=== PATIENT | male | born 1960 | race African-American/Black ===

== ENCOUNTER → 2016-08-11 | Outpatient (CLI) | payer SELFPAY ==
[2015-01-19 22:13] VITALS: BP 144/91
[~2016-08-11] MED LIST: OXYC30TA64 PO
[2016-08-11 13:56] LABS: BASO # 0.1 x10^3/uL (0.0-0.2); BASO % 1 % (0-3); EOS % 5 % (0-3); HEMATOCRIT 43.9 % (39.0-53.0); HEMOGLOBIN 14.3 g/dL (13.0-17.5); LYMPH # 2.3 x10^3/uL (1.0-4.8); LYMPH % 19 % (24-48); MEAN CORPUSCULAR HEMOGLOBIN 28 pg (25-35); MEAN CORPUSCULAR HGB CONC 33 g/dL (31-37); MEAN CORPUSCULAR VOLUME 85 fL (79-100); MONO % 5 % (0-9); NEUT % 71 % (31-73); PLATELET COUNT 342 x10^3/uL (140-400); RED BLOOD COUNT 5.17 x10^6/uL (4.30-5.70); WHITE BLOOD COUNT 11.8 x10^3/uL (4.0-11.0)
[2016-08-11 14:12] LABS: ALBUMIN 4.1 g/dL (3.4-5.0); ALBUMIN/GLOBULIN RATIO 1.1 (1.0-1.7); CALCIUM 9.5 mg/dL (8.5-10.1); CREATININE 0.9 mg/dL (0.7-1.3); GFR 106.4; POTASSIUM 3.8 mmol/L (3.5-5.1); TOTAL BILIRUBIN 0.3 mg/dL (0.2-1.0)
[2016-08-11 14:13] LABS: CHOLESTEROL/HDL RATIO 1.8
== END | disposition home or self-care (01) ==
LOC: LAB 12:22
PROVIDERS: ATTEND Surgery
DX: E11.9 Type 2 diabetes mellitus without complications (principal); E78.5 Hyperlipidemia, unspecified
CPT/HCPCS: 36415; 80053; 80061; 83036; 85027

== ENCOUNTER 2017-08-20 20:45 | Emergency (ER) | payer SELFPAY ==
[2017-08-20] MEDS: IPRATRPIUM/ALBUTEROL 0.5/2.5MG 3 ML NEBU. NEB (21:28)
[2017-08-20] MEDS: BENZONATATE 100 MG CAPSULE. PO (21:43)
== END 2017-08-20 22:10 | disposition home or self-care (01) ==
LOC: ER 22:10
DX: J20.9 Acute bronchitis, unspecified (principal); J06.9 Acute upper respiratory infection, unspecified; E11.9 Type 2 diabetes mellitus without complications; Z88.5 Allergy status to narcotic agent; Z88.8 Allergy status to other drugs, medicaments and biological substances
CPT/HCPCS: 71046; 94640; 99284; J7620

== ENCOUNTER 2018-07-01 06:45 | Emergency (ER) | payer MEDICAID ==
[~2018-07-01] VITALS: Ht 175.3 cm; Wt 73.5 kg
[~2018-07-01 06:45] MED LIST changes: +ALBU1.25 NEB; +AZIT250T PO; +BENZ100C PO; +CLIN150C14 PO; +VENTOLIN HFA18 GM INH
[2018-07-01] MEDS ORDERED: IV NORMAL SALINE 1000ML BAG 1,000 ML IV ONE (07:15)
[2018-07-01] MEDS ORDERED: fentaNYL PF VIAL 100 MCG/2 ML VIAL IV ONE (07:15)
[2018-07-01 07:32] LABS: BASO # 0.1 x10^3/uL (0.0-0.2); BASO % 1 % (0-3); EOS # 0.2 x10^3/uL (0.0-0.7); EOS % 3 % (0-3); HEMATOCRIT 37.1 % (39.0-53.0); HEMOGLOBIN 12.2 g/dL (13.0-17.5); LYMPH # 1.4 x10^3/uL (1.0-4.8); LYMPH % 22 % (24-48); MEAN CORPUSCULAR HEMOGLOBIN 27 pg (25-35); MEAN CORPUSCULAR HGB CONC 33 g/dL (31-37); MEAN CORPUSCULAR VOLUME 82 fL (79-100); MONO # 0.5 x10^3/uL (0.0-1.1); MONO % 8 % (0-9); NEUT # 4.4 x10^3uL (1.8-7.7); NEUT % 66 % (31-73); PLATELET COUNT 365 x10^3/uL (140-400); RED BLOOD COUNT 4.52 x10^6/uL (4.30-5.70); RED CELL DISTRIBUTION WIDTH 13.1 % (11.5-14.5); WHITE BLOOD COUNT 6.6 x10^3/uL (4.0-11.0)
[2018-07-01 07:40] LABS: CALCIUM 8.6 mg/dL (8.5-10.1); CREATININE 1.2 mg/dL (0.7-1.3); GFR 75.8; POTASSIUM 4.3 mmol/L (3.5-5.1)
[2018-07-01 07:45] LABS: ALBUMIN 3.2 g/dL (3.4-5.0); ALBUMIN/GLOBULIN RATIO 0.7 (1.0-1.7); TOTAL BILIRUBIN 0.4 mg/dL (0.2-1.0); TOTAL PROTEIN 7.7 g/dL (6.4-8.2)
--- NOTE | 2018-07-01 07:57 | RAD ---
CT of the abdomen and pelvis without contrast, 07/01/2018: HISTORY: Buttock abscess, cellulitis Noncontrast scans were obtained as requested. This limits evaluation of the abdominal structures. Comparison is made to a study from 01/15/2018. There are abnormal subcutaneous fluid collections in the buttock regions bilaterally. These consist of irregular fluid collections as well as streaky adjacent edema. The largest discrete fluid collection lies on the left and measures 8 cm in greatest width, 2.3 cm in AP dimension and approximately 5-6 cm in craniocaudad extent. It contains small gas collections forming air-fluid levels. The appearance is that of cellulitis with abscess formation. There are smaller less clearly marginated fluid collections containing gas in the subcutaneous soft tissues of the right buttock. This process abuts the posterior margins of the gluteal musculature bilaterally. No deep perirectal extension is evident. The unopacified liver is unremarkable. No gallbladder abnormality is seen. The pancreas cannot be clearly from unopacified bowel. There are calcified granulomata in the spleen. A 2 cm cyst is present in the lower pole of the right kidney. The unopacified kidneys are otherwise unremarkable. Mild aortic calcific plaquing is present. No abdominal adenopathy is seen. There are mildly enlarged lymph nodes at both groin levels. The largest of these lies on the left and measures 2.8 x 1.6 cm. There is diffuse bladder wall thickening, accentuated by the lack of bladder distention. The prostate gland is of normal size. There is a small amount of radiopaque material mixed with stool in the distal colon. The bowel loops are not dilated. No free fluid or free air is evident in the abdomen or pelvis. IMPRESSION: 1. Moderate inflammation and associated fluid collections containing gas in the subcutaneous buttock regions bilaterally, left greater than right, compatible with cellulitis and abscess formation. No definite deep extension is seen. 2. Mild bilateral inguinal adenopathy. 3. Diffuse bladder wall thickening suggesting cystitis versus chronic bladder outlet obstruction. PQRS Compliance Statement: One or more of the following individualized dose reduction techniques were utilized for this examination: 1. Automated exposure control 2. Adjustment of the mA and/or kV according to patient size 3. Use of iterative reconstruction technique Electronically signed by: Mando Taylor MD (07/01/2018 7:54 AM) [facility]
[2018-07-01] MEDS ORDERED: LIDOCAINE 1%/EPI 1:100,000 20 ML VIAL. INJ ONE (08:15)
[2018-07-01] MEDS ORDERED: CLINDAMYCIN INJ 300 MG in IV DEXTROSE 5% 50 ML IV ONE (08:30)
[2018-07-01 09:00] VITALS: BP 126/71
[2018-07-01] MEDS ORDERED: CEPH500C PO (09:05)
[2018-07-01] MEDS ORDERED: SULF1TAB24 PO (09:05)
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
== END 2018-07-01 10:17 | disposition home or self-care (01) ==
LOC: ER 06:45
DX: L02.31 Cutaneous abscess of buttock (principal); E11.40 Type 2 diabetes mellitus with diabetic neuropathy, unspecified; G89.29 Other chronic pain; Z90.89 Acquired absence of other organs; Z91.041 Radiographic dye allergy status; Z88.5 Allergy status to narcotic agent; Z88.6 Allergy status to analgesic agent
CPT/HCPCS: 10061; 36415; 74176; 80053; 83605; 85025; 87040; 96365; 96375; 99285; J3010; J3490; J7030

== ENCOUNTER 2018-08-17 03:25 | Inpatient (IN) | payer MEDICAID ==
[2018-08-17] VITALS (13 sets, daily range): BP systolic 102–141; BP diastolic 57–91
[~2018-08-17] VITALS: Ht 175.3 cm; Wt 65.3 kg
[~2018-08-17 03:25] MED LIST changes: +CEPH500C PO; +SULF1TAB24 PO
[2018-08-17] MEDS ORDERED: DEXTROSE 50% 25 GM / 50ML DISP.SYRIN. IV PRN ×2 (04:00→08:45)
[2018-08-17] MEDS ORDERED: fentaNYL PF VIAL 100 MCG/2 ML VIAL IV PRN ×3 (04:00→09:00)
[2018-08-17] MEDS ORDERED: ONDANSETRON PF 4 MG/2 ML VIAL. IV PRN ×3 (04:00→11:45)
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
[2018-08-17 04:20] LABS: BASO # 0.1 x10^3/uL (0.0-0.2); BASO % 1 % (0-3); EOS # 0.4 x10^3/uL (0.0-0.7); EOS % 6 % (0-3); LYMPH # 2.4 x10^3/uL (1.0-4.8); LYMPH % 37 % (24-48); MEAN CORPUSCULAR HEMOGLOBIN 27 pg (25-35); MEAN CORPUSCULAR HGB CONC 33 g/dL (31-37); MEAN CORPUSCULAR VOLUME 80 fL (79-100); MONO # 0.5 x10^3/uL (0.0-1.1); MONO % 8 % (0-9); NEUT # 3.1 x10^3uL (1.8-7.7); NEUT % 48 % (31-73); PLATELET COUNT 424 x10^3/uL (140-400); RED BLOOD COUNT 4.52 x10^6/uL (4.30-5.70); RED CELL DISTRIBUTION WIDTH 13.3 % (11.5-14.5); WHITE BLOOD COUNT 6.5 x10^3/uL (4.0-11.0)
[2018-08-17] MEDS ORDERED: CLINDAMYCIN 600MG PREMIX 50 ML IV ONE (04:30)
[2018-08-17] MEDS ORDERED: IV NORMAL SALINE 1000ML BAG 1,000 ML IV ONE (04:30)
[2018-08-17 04:42] LABS: CALCIUM 8.8 mg/dL (8.5-10.1); CREATININE 1.1 mg/dL (0.7-1.3); GFR 83.8; POTASSIUM 3.9 mmol/L (3.5-5.1)
[2018-08-17 04:47] LABS: ALBUMIN 2.9 g/dL (3.4-5.0); ALBUMIN/GLOBULIN RATIO 0.6 (1.0-1.7); MAGNESIUM 1.6 mg/dL (1.8-2.4); TOTAL BILIRUBIN 0.1 mg/dL (0.2-1.0); TOTAL PROTEIN 7.4 g/dL (6.4-8.2)
[2018-08-17] MEDS ORDERED: MORPHINE SULFATE 10 MG/ML VIAL. IV ONE (05:00)
--- NOTE | 2018-08-17 05:15 | NUR ---
Patient admitted from ER to room 432 per cart. Patient has bilateral abscesses on his buttocks. Patient states he injects insulin into his buttocks with dirty insulin needles. Explained to patient and his that he should not be doing that. Instructed patient to use a new needle with every injection. Patient has several allergies listed above. Patient is alert and oriented X4. Patient lives at home with his Karely. Consult with Dr. Garcia for I&D of abscesses. Will continue to monitor.
[2018-08-17] MEDS: fentaNYL PF VIAL 100 MCG/2 ML VIAL IV PRN ×3 (07:15→13:04)
[2018-08-17] MEDS ORDERED: OXYC30TA2 PO (07:33)
[2018-08-17] MEDS ORDERED: INSULIN LISPRO 300 UNITS/3 ML INSULN.PEN. SQ SCH (08:00)
--- NOTE | 2018-08-17 08:14 | PDOC2 ---
KONRAD BALLESTEROS CUSTOMER SERVICE CLERK 08/17/18 0814: CONSULT Date of Consult Date of Consult DATE: 08/17/18 TIME: 08:05 Reason for Consult Reason for Consult: buttock abscess Referring Physician Referring Physician: er Identification/Chief Complaint Chief Complaint buttock pain Source Source: Caregiver, Chart review History of Present Illness Reason for Visit: Reports had previously been using dull insulin needs to give him his shots, was doing them to gluteal muscle. Developed abscess back in December and has been having ongoing issues with infections. Local I&D x 2. Yesterday had some burst of drainage. Continues to swell and have pain. His blood sugars have been high and reports fevers Past Medical History Pulmonary: Bronchitis, Other (TB hx) CENTRAL NERVOUS SYSTEM: Periperal neuropathy Musculoskeletal: low back pain Endocrine: Diabetes Past Surgical History Past Surgical History: Other (xlap, did not remove appendix) Family History Family History: Other (noncontributory to current illness ) Social History No ALCOHOL: none Drugs: None Lives: with Family Current Problem List Problem List Problems Medical Problems: (1) Hyperglycemia Status: Acute Current Medications Current Medications Current Medications Clindamycin Phosphate 50 ml @ 100 mls/hr 1X ONCE IV Last administered on 08/17/18at 04:12; Start 08/17/18 at 04:30; Stop 08/17/18 at 04:59; Status DC Sodium Chloride 1,000 ml @ 1,000 mls/hr 1X ONCE IV Last administered on 08/17/18at 04:13; Start 08/17/18 at 04:30; Stop 08/17/18 at 05:29; Status DC Ondansetron HCl (Zofran) 4 mg PRN Q8HRS PRN IV NAUSEA/VOMITING 1ST CHANCE; Start 08/17/18 at 04:00; Stop 08/18/18 at 03:59 Fentanyl Citrate (Fentanyl 2ml Vial) 50 mcg Q2HR PRN IV PAIN Last administered on 08/17/18at 04:14; Start 08/17/18 at 04:00; Stop 08/17/18 at 04:18; Status DC Insulin Human Lispro (HumaLOG) 0-5 UNITS TIDWMEALS SQ ; Start 08/17/18 at 08:00 Dextrose (Dextrose 50%-Water Syringe) 12.5 gm PRN Q15MIN PRN IV SEE COMMENTS; Start 08/17/18 at 04:00 Fentanyl Citrate (Fentanyl 2ml Vial) 50 mcg PRN Q2HRS PRN IV SEVERE PAIN 7-10 Last administered on 08/17/18at 07:15; Start 08/17/18 at 04:30; Stop 08/18/18 at 04:29 Morphine Sulfate (Morphine Sulfate) 6 mg 1X ONCE IV Last administered on 08/17/18at 04:57; Start 08/17/18 at 05:00; Stop 08/17/18 at 05:01; Status DC Active Scripts Active Cephalexin 500 Mg Capsule 1 Cap PO QID Albuterol Sulfate Neb Soln (Albuterol Sulfate) 1.25 Mg/3 Ml Vial.neb 1 Vial NEB Q4HRS Ventolin Hfa Inhaler (Albuterol Sulfate) 18 Gm Hfa.aer.ad 2 Puff INH Q4HRS Zithromax (Azithromycin) 250 Mg Tablet 1 Pkg PO UD Reported Oxycodone HCl 30 Mg Tablet 30 Mg PO PRN Q6HRS PRN Oxycontin (Oxycodone HCl) 30 Mg Tab.er.12h 1 Tab PO BID Allergies Allergies: Coded Allergies: Iodinated Contrast- Oral and IV Dye (Verified Allergy, Severe, Anaphylaxis, 01/15/18) iodine (Verified Allergy, Severe, 01/15/18) acetaminophen (Verified Allergy, Intermediate, Hives, 08/17/18) codeine (Verified Allergy, Intermediate, Hives, 08/17/18) hydrocodone (Unverified Allergy, Intermediate, Rash, 01/15/18) sodium hypochlorite solution (Verified Allergy, Intermediate, 05/28/14) tramadol (Verified Allergy, Intermediate, 01/15/18) ROS General: YES: Chills, Other (fevers ) PSYCHOLOGICAL ROS: No: Anxiety, Depression Eyes: No Blurry vision, No Double vision HEENT: No: Heacaches, Sore Throat Hematological and Lymphatic: No: Bleeding Problems, Blood Clots Respiratory: No: Cough, Shortness of breath Cardiovascular: No Chest Pain, No Palpitations Gastrointestinal: Yes Nausea, Yes Vomiting; No Diarrhea, No Constipation Genitourinary: No Dysuria, No Hematuria Musculoskeletal: Yes Joint Pain, Yes Muscle Pain Neurological: No Confusion, No Impaired Coord/balance Skin: Yes Other (see hpi) Physical Exam General: Alert, Oriented X3, Cooperative, No acute distress HEENT: PERRLA, Mucous membr. moist/pink Lungs: Clear to auscultation, Normal air movement Heart: Regular rate, Normal S1, Normal S2, No murmurs Abdomen: Soft, No tenderness Extremities: No clubbing, No cyanosis Skin: Other (left buttock with very large palpable fluid collection, right buttock small area of induration/flutuance ) Neuro: Normal gait, Normal speech MUSCULOSKELETAL: No deformity, No swelling Vitals VITALS Vital Signs Date Time Temp Pulse Resp B/P (MAP) Pulse Ox O2 Delivery O2 Flow Rate FiO2 08/17/18 07:15 20 Room Air 08/17/18 07:00 98.2 73 102/65 (77) 95 98.2 Labs Labs Laboratory Tests Test 08/17/18 04:05 08/17/18 06:08 White Blood Count 6.5 x10^3/uL (4.0-11.0) Red Blood Count 4.52 x10^6/uL (4.30-5.70) Hemoglobin 12.0 g/dL (13.0-17.5) Hematocrit 36.0 % (39.0-53.0) Mean Corpuscular Volume 80 fL (79-100) Mean Corpuscular Hemoglobin 27 pg (25-35) Mean Corpuscular Hemoglobin Concent 33 g/dL (31-37) Red Cell Distribution Width 13.3 % (11.5-14.5) Platelet Count 424 x10^3/uL (140-400) Neutrophils (%) (Auto) 48 % (31-73) Lymphocytes (%) (Auto) 37 % (24-48) Monocytes (%) (Auto) 8 % (0-9) Eosinophils (%) (Auto) 6 % (0-3) Basophils (%) (Auto) 1 % (0-3) Neutrophils # (Auto) 3.1 x10^3uL (1.8-7.7) Lymphocytes # (Auto) 2.4 x10^3/uL (1.0-4.8) Monocytes # (Auto) 0.5 x10^3/uL (0.0-1.1) Eosinophils # (Auto) 0.4 x10^3/uL (0.0-0.7) Basophils # (Auto) 0.1 x10^3/uL (0.0-0.2) Sodium Level 132 mmol/L (136-145) Potassium Level 3.9 mmol/L (3.5-5.1) Chloride Level 96 mmol/L (98-107) Carbon Dioxide Level 31 mmol/L (21-32) Anion Gap 5 (6-14) Blood Urea Nitrogen 5 mg/dL (8-26) Creatinine 1.1 mg/dL (0.7-1.3) Estimated GFR (Cockcroft-Gault) 83.8 BUN/Creatinine Ratio 5 (6-20) Glucose Level 356 mg/dL (70-99) Lactic Acid Level 1.8 mmol/L (0.4-2.0) Calcium Level 8.8 mg/dL (8.5-10.1) Magnesium Level 1.6 mg/dL (1.8-2.4) Total Bilirubin 0.1 mg/dL (0.2-1.0) Aspartate Amino Transf (AST/SGOT) 11 U/L (15-37) Alanine Aminotransferase (ALT/SGPT) 13 U/L (16-63) Alkaline Phosphatase 75 U/L (46-116) Total Protein 7.4 g/dL (6.4-8.2) Albumin 2.9 g/dL (3.4-5.0) Albumin/Globulin Ratio 0.6 (1.0-1.7) Glucose (Fingerstick) 201 mg/dL (70-99) Laboratory Tests Test 08/17/18 04:05 08/17/18 06:08 White Blood Count 6.5 x10^3/uL (4.0-11.0) Red Blood Count 4.52 x10^6/uL (4.30-5.70) Hemoglobin 12.0 g/dL (13.0-17.5) Hematocrit 36.0 % (39.0-53.0) Mean Corpuscular Volume 80 fL (79-100) Mean Corpuscular Hemoglobin 27 pg (25-35) Mean Corpuscular Hemoglobin Concent 33 g/dL (31-37) Red Cell Distribution Width 13.3 % (11.5-14.5) Platelet Count 424 x10^3/uL (140-400) Neutrophils (%) (Auto) 48 % (31-73) Lymphocytes (%) (Auto) 37 % (24-48) Monocytes (%) (Auto) 8 % (0-9) Eosinophils (%) (Auto) 6 % (0-3) Basophils (%) (Auto) 1 % (0-3) Neutrophils # (Auto) 3.1 x10^3uL (1.8-7.7) Lymphocytes # (Auto) 2.4 x10^3/uL (1.0-4.8) Monocytes # (Auto) 0.5 x10^3/uL (0.0-1.1) Eosinophils # (Auto) 0.4 x10^3/uL (0.0-0.7) Basophils # (Auto) 0.1 x10^3/uL (0.0-0.2) Sodium Level 132 mmol/L (136-145) Potassium Level 3.9 mmol/L (3.5-5.1) Chloride Level 96 mmol/L (98-107) Carbon Dioxide Level 31 mmol/L (21-32) Anion Gap 5 (6-14) Blood Urea Nitrogen 5 mg/dL (8-26) Creatinine 1.1 mg/dL (0.7-1.3) Estimated GFR (Cockcroft-Gault) 83.8 BUN/Creatinine Ratio 5 (6-20) Glucose Level 356 mg/dL (70-99) Lactic Acid Level 1.8 mmol/L (0.4-2.0) Calcium Level 8.8 mg/dL (8.5-10.1) Magnesium Level 1.6 mg/dL (1.8-2.4) Total Bilirubin 0.1 mg/dL (0.2-1.0) Aspartate Amino Transf (AST/SGOT) 11 U/L (15-37) Alanine Aminotransferase (ALT/SGPT) 13 U/L (16-63) Alkaline Phosphatase 75 U/L (46-116) Total Protein 7.4 g/dL (6.4-8.2) Albumin 2.9 g/dL (3.4-5.0) Albumin/Globulin Ratio 0.6 (1.0-1.7) Glucose (Fingerstick) 201 mg/dL (70-99) Assessment/Plan Assessment/Plan buttock abscess will likely need I&D--will discuss with Dr Garcia keep NPO continue abx treatment GREGORIO GARCIA MD 08/17/18 1015: CONSULT Assessment/Plan Assessment/Plan Pt seen and examined. Agree with Ms. Allie's note Pt with c/o Bilateral buttock pain, multiple previous I and Ds. multiple TTP areas on bilateral buttocks with small fluctuant areas. TO OR for multiple I and Ds. R/B/A d/w pt. Risks, including, but not limited to: bleeding, infection, damage to surrounding structures, risk of anesthesia, risk or recurrence. He appears to understand, his questions are answered and he elects to proceed. Thanks for consult! KONRAD BALLESTEROS APRN Aug 17, 2018 08:14 GREGORIO GARCIA MD Aug 17, 2018 10:15
[2018-08-17] MEDS ORDERED: traMADol 50 MG TABLET PO PRN (08:45)
[2018-08-17] MEDS ORDERED: IV RINGERS,LACTATED 1000ML 1,000 ML IV SCH (08:48)
[2018-08-17] MEDS ORDERED: PROCHLORPERAZINE 10 MG/2 ML VIAL. IV PRN (09:00)
[2018-08-17] MEDS ORDERED: LIDOCAINE 1% PF 2 ML VIAL. ID PRN (09:00)
[2018-08-17] MEDS ORDERED: BUPIVAC MPF-EPI 0.5%-1:200000 30 ML VIAL. ONE (09:46)
[2018-08-17] MEDS ORDERED: MIDAZOLAM HCL/PF 2 MG/2 ML VIAL. ONE (10:17)
[2018-08-17] MEDS ORDERED: SEVOFLURANE 31 TO 60 MINUTES. IH ONE (10:17)
[2018-08-17] MEDS ORDERED: DEXAMETHASONE SOD PHOS 4 MG/ML VIAL ONE (10:18)
[2018-08-17] MEDS ORDERED: PROPOFOL 20 ML IV ONE (10:18)
[2018-08-17] MEDS ORDERED: LIDOCAINE 2% PF 5 ML VIAL. ONE (10:18)
[2018-08-17] MEDS ORDERED: SUCCINYLCHOLINE 200 MG/10 ML VIAL. ONE (10:18)
[2018-08-17] MEDS ORDERED: fentaNYL PF VIAL 100 MCG/2 ML VIAL ONE (10:18)
[2018-08-17] MEDS ORDERED: ONDANSETRON PF 4 MG/2 ML VIAL. ONE (10:18)
[2018-08-17] MEDS ORDERED: ceFAZolin 1GM IVPB FOR OMNI 100 ML IV ONE (10:26)
--- NOTE | 2018-08-17 10:53 | PDOC1 ---
History and Physical Date of Admission Date of Admission DATE: 08/17/18 TIME: 10:47 Identification/Chief Complaint Chief Complaint Pt is out having surgery of his abscess on bilateral buttocks by GS Source Source: Caregiver, Chart review, Patient History of Present Illness History of Present Illness Pt is out having surgery hence most of the history obtained via ER M.D. chart 57-year-old male diabetic presented with bilateral buttock abscesses. Admitted to running out of insulin few mos now, symptoms started when he started injecting insulin in his buttock needed some I and D in the past In June 2018 came to the ED additional I&D done/needed, returned home on antibiotics and subsequently developed hives tape gauze etc. Used [id number] Benadryl. A week ago persistent pain and yesterday right buttock abscess draining pink to yellow pus significant pain, cannot sit down. Denies fever or chills. Tetanus booster was less than 5 years ago hence admitted. On clindamycin, diabetic, out having surgery We'll check A1c Follow cultures hgba1c 8.7 in 2016 Past Medical History Pulmonary: Bronchitis, Other (TB hx) CENTRAL NERVOUS SYSTEM: Periperal neuropathy Musculoskeletal: low back pain Endocrine: Diabetes Past Surgical History Past Surgical History: Other (xlap, did not remove appendix; I and D buttock) Family History Family History: High Cholestrol, Hypertension, Other (noncontributory to current illness ) Social History Smoke: No ALCOHOL: none Drugs: None Current Problem List Problem List Problems Medical Problems: (1) Hyperglycemia Status: Acute Current Medications Current Medications Current Medications Clindamycin Phosphate 50 ml @ 100 mls/hr 1X ONCE IV Last administered on 08/17/18at 04:12; Start 08/17/18 at 04:30; Stop 08/17/18 at 04:59; Status DC Sodium Chloride 1,000 ml @ 1,000 mls/hr 1X ONCE IV Last administered on 08/17/18at 04:13; Start 08/17/18 at 04:30; Stop 08/17/18 at 05:29; Status DC Ondansetron HCl (Zofran) 4 mg PRN Q8HRS PRN IV NAUSEA/VOMITING 1ST CHANCE; Start 08/17/18 at 04:00; Stop 08/17/18 at 08:43; Status DC Fentanyl Citrate (Fentanyl 2ml Vial) 50 mcg Q2HR PRN IV PAIN Last administered on 08/17/18at 04:14; Start 08/17/18 at 04:00; Stop 08/17/18 at 04:18; Status DC Insulin Human Lispro (HumaLOG) 0-5 UNITS TIDWMEALS SQ ; Start 08/17/18 at 08:00; Stop 08/17/18 at 08:43; Status DC Dextrose (Dextrose 50%-Water Syringe) 12.5 gm PRN Q15MIN PRN IV SEE COMMENTS; Start 08/17/18 at 04:00 Fentanyl Citrate (Fentanyl 2ml Vial) 50 mcg PRN Q2HRS PRN IV SEVERE PAIN 7-10 Last administered on 08/17/18at 10:19; Start 08/17/18 at 04:30; Stop 08/18/18 at 04:29 Morphine Sulfate (Morphine Sulfate) 6 mg 1X ONCE IV Last administered on 08/17/18at 04:57; Start 08/17/18 at 05:00; Stop 08/17/18 at 05:01; Status DC Ondansetron HCl (Zofran) 4 mg PRN Q6HRS PRN IV NAUSEA/VOMITING 1ST CHANCE; Start 08/17/18 at 08:45 Tramadol HCl (Ultram) 50 mg PRN Q6HRS PRN PO MILD PAIN 1-3; Start 08/17/18 at 08:45; Status UNV Insulin Human Lispro (HumaLOG) 0-9 UNITS TIDWMEALS SQ ; Start 08/17/18 at 12:00 Dextrose (Dextrose 50%-Water Syringe) 12.5 gm PRN Q15MIN PRN IV SEE COMMENTS; Start 08/17/18 at 08:45 Oxycodone HCl (Roxicodone) 30 mg PRN Q6HRS PRN PO SEVERE PAIN; Start 08/17/18 at 08:45 Non-Formulary Medication (Albuterol Sulfate (Albuterol Sulfate Neb Soln)) 1 vial Q4HRS NEB ; Start 08/17/18 at 12:00; Status UNV Non-Formulary Medication (Albuterol Sulfate (Ventolin Hfa Inhaler)) 2 puff Q4HRS INH ; Start 08/17/18 at 12:00; Status UNV Clindamycin Phosphate 50 ml @ 100 mls/hr Q8HRS IV ; Start 08/17/18 at 13:00 Fentanyl Citrate (Fentanyl 2ml Vial) 25 mcg PRN Q5MIN PRN IV MILD PAIN 1-3; Start 08/17/18 at 09:00; Stop 08/17/18 at 18:00 Fentanyl Citrate (Fentanyl 2ml Vial) 50 mcg PRN Q5MIN PRN IV MODERATE TO SEVERE PAIN; Start 08/17/18 at 09:00; Stop 08/17/18 at 20:00 Ringer's Solution 1,000 ml @ 30 mls/hr Q24H IV Last administered on 08/17/18at 09:33; Start 08/17/18 at 08:48; Stop 08/17/18 at 20:47 Lidocaine HCl (Xylocaine-Mpf 1% 2ml Vial) 2 ml PRN 1X PRN ID PRIOR TO IV START; Start 08/17/18 at 09:00; Stop 08/17/18 at 20:00 Prochlorperazine Edisylate (Compazine) 5 mg PACU PRN PRN IV NAUSEA, MRX1; Start 08/17/18 at 09:00; Stop 08/17/18 at 20:00 Albuterol Sulfate (Ventolin Neb Soln) 2.5 mg Q4HRS NEB ; Start 08/17/18 at 12:00 Sevoflurane (Ultane) 30 ml STK-MED ONCE IH ; Start 08/17/18 at 10:17; Stop 08/17/18 at 10:18; Status DC Midazolam HCl (Versed) 2 mg STK-MED ONCE .ROUTE ; Start 08/17/18 at 10:17; Stop 08/17/18 at 10:18; Status DC Fentanyl Citrate (Fentanyl 2ml Vial) 100 mcg STK-MED ONCE .ROUTE ; Start 08/17/18 at 10:18; Stop 08/17/18 at 10:19; Status DC Succinylcholine Chloride (Anectine) 200 mg STK-MED ONCE .ROUTE ; Start 08/17/18 at 10:18; Stop 08/17/18 at 10:19; Status DC Dexamethasone Sodium Phosphate (Decadron) 4 mg STK-MED ONCE .ROUTE ; Start 08/17/18 at 10:18; Stop 08/17/18 at 10:19; Status DC Ondansetron HCl (Zofran) 4 mg STK-MED ONCE .ROUTE ; Start 08/17/18 at 10:18; Stop 08/17/18 at 10:19; Status DC Propofol 20 ml @ As Directed STK-MED ONCE IV ; Start 08/17/18 at 10:18; Stop 08/17/18 at 10:19; Status DC Lidocaine HCl (Lidocaine Pf 2% Vial) 5 ml STK-MED ONCE .ROUTE ; Start 08/17/18 at 10:18; Stop 08/17/18 at 10:19; Status DC Cefazolin Sodium 100 ml @ As Directed STK-MED ONCE IV ; Start 08/17/18 at 10:26; Stop 08/17/18 at 10:27; Status DC Bupivacaine HCl/ Epinephrine Bitart (Sensorcain-Mpf Epi 0.5%-1:[id number]) 30 ml STK-MED ONCE .ROUTE ; Start 08/17/18 at 09:46; Stop 08/17/18 at 10:46; Status DC Active Scripts Active Cephalexin 500 Mg Capsule 1 Cap PO QID Albuterol Sulfate Neb Soln (Albuterol Sulfate) 1.25 Mg/3 Ml Vial.neb 1 Vial NEB Q4HRS Ventolin Hfa Inhaler (Albuterol Sulfate) 18 Gm Hfa.aer.ad 2 Puff INH Q4HRS Zithromax (Azithromycin) 250 Mg Tablet 1 Pkg PO UD Reported Oxycodone HCl 30 Mg Tablet 30 Mg PO PRN Q6HRS PRN Oxycontin (Oxycodone HCl) 30 Mg Tab.er.12h 1 Tab PO BID Allergies Allergies: Coded Allergies: Iodinated Contrast- Oral and IV Dye (Verified Allergy, Severe, Anaphylaxis, 01/15/18) iodine (Verified Allergy, Severe, 01/15/18) acetaminophen (Verified Allergy, Intermediate, Hives, 08/17/18) codeine (Verified Allergy, Intermediate, Hives, 08/17/18) hydrocodone (Unverified Allergy, Intermediate, Rash, 01/15/18) sodium hypochlorite solution (Verified Allergy, Intermediate, 05/28/14) tramadol (Verified Allergy, Intermediate, 01/15/18) ROS Review of System Bilateral buttock pain because of abscess, cannot sit, the rest of ROS 14 point negative Physical Exam General: Alert, Oriented X3, Cooperative, No acute distress HEENT: Atraumatic, PERRLA, EOMI Lungs: Clear to auscultation, Normal air movement Heart: S1S2, RRR, no thrills, no rubs, no gallops, no murmurs Cardiovascular: S1, S2 Abdomen: Normal bowel sounds, Soft, No tenderness, No hepatosplenomegaly, No masses Rectal Exam: other (bilateral buttock abscess, draining) Extremities: No clubbing, No cyanosis, No edema, Normal pulses, No tenderness/swelling Skin: No rashes, No breakdown, No significant lesion Neuro: Normal gait, Normal speech, Strength at 5/5 X4 ext, Normal tone, Sensation intact, Cranial nerves 3-12 NL, Reflexes 2+ Psych/Mental Status: Mental status NL, Mood NL Vitals Vitals Vital Signs Date Time Temp Pulse Resp B/P (MAP) Pulse Ox O2 Delivery O2 Flow Rate FiO2 08/17/18 10:19 12 96 Room Air 08/17/18 09:47 97.2 78 116/70 97.2 Labs Labs Laboratory Tests Test 08/17/18 04:05 08/17/18 06:08 White Blood Count 6.5 x10^3/uL (4.0-11.0) Red Blood Count 4.52 x10^6/uL (4.30-5.70) Hemoglobin 12.0 g/dL (13.0-17.5) Hematocrit 36.0 % (39.0-53.0) Mean Corpuscular Volume 80 fL (79-100) Mean Corpuscular Hemoglobin 27 pg (25-35) Mean Corpuscular Hemoglobin Concent 33 g/dL (31-37) Red Cell Distribution Width 13.3 % (11.5-14.5) Platelet Count 424 x10^3/uL (140-400) Neutrophils (%) (Auto) 48 % (31-73) Lymphocytes (%) (Auto) 37 % (24-48) Monocytes (%) (Auto) 8 % (0-9) Eosinophils (%) (Auto) 6 % (0-3) Basophils (%) (Auto) 1 % (0-3) Neutrophils # (Auto) 3.1 x10^3uL (1.8-7.7) Lymphocytes # (Auto) 2.4 x10^3/uL (1.0-4.8) Monocytes # (Auto) 0.5 x10^3/uL (0.0-1.1) Eosinophils # (Auto) 0.4 x10^3/uL (0.0-0.7) Basophils # (Auto) 0.1 x10^3/uL (0.0-0.2) Sodium Level 132 mmol/L (136-145) Potassium Level 3.9 mmol/L (3.5-5.1) Chloride Level 96 mmol/L (98-107) Carbon Dioxide Level 31 mmol/L (21-32) Anion Gap 5 (6-14) Blood Urea Nitrogen 5 mg/dL (8-26) Creatinine 1.1 mg/dL (0.7-1.3) Estimated GFR (Cockcroft-Gault) 83.8 BUN/Creatinine Ratio 5 (6-20) Glucose Level 356 mg/dL (70-99) Lactic Acid Level 1.8 mmol/L (0.4-2.0) Calcium Level 8.8 mg/dL (8.5-10.1) Magnesium Level 1.6 mg/dL (1.8-2.4) Total Bilirubin 0.1 mg/dL (0.2-1.0) Aspartate Amino Transf (AST/SGOT) 11 U/L (15-37) Alanine Aminotransferase (ALT/SGPT) 13 U/L (16-63) Alkaline Phosphatase 75 U/L (46-116) Total Protein 7.4 g/dL (6.4-8.2) Albumin 2.9 g/dL (3.4-5.0) Albumin/Globulin Ratio 0.6 (1.0-1.7) Glucose (Fingerstick) 201 mg/dL (70-99) Laboratory Tests Test 08/17/18 04:05 08/17/18 06:08 White Blood Count 6.5 x10^3/uL (4.0-11.0) Red Blood Count 4.52 x10^6/uL (4.30-5.70) Hemoglobin 12.0 g/dL (13.0-17.5) Hematocrit 36.0 % (39.0-53.0) Mean Corpuscular Volume 80 fL (79-100) Mean Corpuscular Hemoglobin 27 pg (25-35) Mean Corpuscular Hemoglobin Concent 33 g/dL (31-37) Red Cell Distribution Width 13.3 % (11.5-14.5) Platelet Count 424 x10^3/uL (140-400) Neutrophils (%) (Auto) 48 % (31-73) Lymphocytes (%) (Auto) 37 % (24-48) Monocytes (%) (Auto) 8 % (0-9) Eosinophils (%) (Auto) 6 % (0-3) Basophils (%) (Auto) 1 % (0-3) Neutrophils # (Auto) 3.1 x10^3uL (1.8-7.7) Lymphocytes # (Auto) 2.4 x10^3/uL (1.0-4.8) Monocytes # (Auto) 0.5 x10^3/uL (0.0-1.1) Eosinophils # (Auto) 0.4 x10^3/uL (0.0-0.7) Basophils # (Auto) 0.1 x10^3/uL (0.0-0.2) Sodium Level 132 mmol/L (136-145) Potassium Level 3.9 mmol/L (3.5-5.1) Chloride Level 96 mmol/L (98-107) Carbon Dioxide Level 31 mmol/L (21-32) Anion Gap 5 (6-14) Blood Urea Nitrogen 5 mg/dL (8-26) Creatinine 1.1 mg/dL (0.7-1.3) Estimated GFR (Cockcroft-Gault) 83.8 BUN/Creatinine Ratio 5 (6-20) Glucose Level 356 mg/dL (70-99) Lactic Acid Level 1.8 mmol/L (0.4-2.0) Calcium Level 8.8 mg/dL (8.5-10.1) Magnesium Level 1.6 mg/dL (1.8-2.4) Total Bilirubin 0.1 mg/dL (0.2-1.0) Aspartate Amino Transf (AST/SGOT) 11 U/L (15-37) Alanine Aminotransferase (ALT/SGPT) 13 U/L (16-63) Alkaline Phosphatase 75 U/L (46-116) Total Protein 7.4 g/dL (6.4-8.2) Albumin 2.9 g/dL (3.4-5.0) Albumin/Globulin Ratio 0.6 (1.0-1.7) Glucose (Fingerstick) 201 mg/dL (70-99) VTE Prophylaxis Ordered VTE Prophylaxis Devices: Yes VTE Pharmacological Prophylaxi: Yes Assessment/Plan Assessment/Plan Bilateral buttock abscess Sepsis no organ dysfunction Diabetes type 2, question compliance-check A1c - hgba1c 8.7 in 2017 Hyponatremia 132 History I and D buttocks PLAN: FF up from OR Check postop labs Check a sedimentation rate Continue clindamycin Follow cultures Start some Levemir long-acting Cannot do metformin? Creatinine 1.1 or alcoholic? Maybe some glyburide mealtime SSI high dose Check hgba1c GS consulted WOund care to consult maybe pending my PE Will see hime When he gets back from OR NIC HERNANDEZ MD Aug 17, 2018 10:53
[2018-08-17] MEDS ORDERED: IV NORMAL SALINE 1000ML BAG 1,000 ML IV SCH (11:42)
[2018-08-17] MEDS ORDERED: NALOXONE 0.4 MG/ML VIAL. IV PRN (11:45)
[2018-08-17] MEDS ORDERED: 0.9 % SODIUM CHLORIDE 10 ML DISP.SYRIN. IV PRN (11:45)
--- NOTE | 2018-08-17 11:51 | PDOC4 ---
OPERATIVE NOTE Date: Date: Aug 17, 2018 Pre-Op Diagnosis: Bilateral buttock abscesses Post-Op Diagnosis: same Procedure Performed: Incisional and drainage of bilateral buttock abscesses Surgeon: Elijah Bello Anesthesia Type: GETA plus local Blood Loss: 50 Specimans Obtained: cultures, left buttock abscess Findings: bilateral, large buttock abscesses Complications: none Operative Note: After obtaining informed consent, patient was taken to OR, induced under GETA and prepped in the usual fashion and placed in a prone position. Left buttock noted to have necrotic skin area which was excised with cautery and sent to pathology. Large amount of brownish/bennett fluid evacuated. Cultures obtained. Copious irrigation and digital evacuation of large cavity. Multiple counter incisions made and miles drains placed and secured with 3 0 nylon. Wound packed with iodoform gauze. Dressing placed. Right buttock then addressed. Incision and drainage made with cautery and equally large abscess identified, evacuated, digitally broken up and irrigated. Multiple counter incisions made and miles drains placed to widely drain area. Wound packed with iodoform gauze. Dressing placed. Patient tolerated procedure well and sent to PACU in stable condition. All counts correct. Wound class is dirty. GREGORIO BELLO MD Aug 17, 2018 11:51
[2018-08-17] MEDS: INSULIN LISPRO 300 UNITS/3 ML INSULN.PEN. SQ SCH ×4 (11:54→21:00)
[2018-08-17] MEDS ORDERED: ceFAZolin SODIUM IV Push 1 GM VIAL. IVP PRN (12:00)
[2018-08-17] MEDS ORDERED: NON FORMULARY ITEM (Albuterol Sulfate (Ventolin Hfa Inhaler) 2 PUFF) INH SCH (12:00)
[2018-08-17] MEDS ORDERED: NON FORMULARY ITEM (Albuterol Sulfate (Albuterol Sulfate Neb Soln) 1 VIAL) NEB SCH (12:00)
--- NOTE | 2018-08-17 12:28 | NUR ---
Pt returned to floor from PACU by bed to room 432. ordered meal tray. Dressings to bilateral buttocks CDI. VS WNL.
[2018-08-17] MEDS: CLINDAMYCIN 600MG PREMIX 50 ML IV SCH ×2 (13:09→22:49)
[2018-08-17] MEDS: SENNOSIDES/DOCUSATE 8.6/50MG TABLET. PO SCH ×2 (13:11→21:03)
[2018-08-17] MEDS: ALBUTEROL SULFATE 2.5 MG/3 ML NEBU. NEB SCH ×4 (13:13→19:33)
[2018-08-17] MEDS ORDERED: GLYB5TAB3 PO (15:23)
[2018-08-17] MEDS ORDERED: METF500T16 PO (15:23)
[2018-08-17] MEDS ORDERED: INSU100I13 SQ (15:23)
[2018-08-17] MEDS ORDERED: glyBURIDE 1.25 MG TABLET PO SCH (17:00)
[2018-08-17] MEDS ORDERED: INSULIN LISPRO 300 UNITS/3 ML INSULN.PEN. SQ ONE ×2 (17:00→21:00)
[2018-08-17] MEDS: metFORMIN 500 MG TABLET PO SCH (17:35)
[2018-08-17] MEDS ORDERED: INSULIN GLARGINE 300 UNITS/3 ML INSULN.PEN. SQ SCH ×2 (21:00)
[2018-08-17] MEDS ORDERED: ENOXAPARIN 40 MG/0.4 ML SYRINGE. SQ SCH (21:00)
[2018-08-17] MEDS: oxyCODONE ER 15 MG TAB.ER.12H PO SCH (21:03)
[2018-08-18 03:38] VITALS: BP 133/81
[2018-08-18 05:38] LABS: HEMOGLOBIN A1C 13.8 % (4.8-5.6)
[2018-08-18] MEDS: CLINDAMYCIN 600MG PREMIX 50 ML IV SCH ×3 (06:38→21:06)
[2018-08-18 07:00] VITALS: BP 119/71
[2018-08-18] MEDS: metFORMIN 500 MG TABLET PO SCH ×2 (08:32→16:56)
[2018-08-18] MEDS: oxyCODONE ER 15 MG TAB.ER.12H PO SCH ×2 (08:37→21:05)
[2018-08-18] MEDS: INSULIN LISPRO 300 UNITS/3 ML INSULN.PEN. SQ SCH ×3 (08:44→17:32)
--- NOTE | 2018-08-18 08:49 | NUR ---
night nurse inadvertently charted against the am dose of insulin novolog 5 units when she gave 5 units of pm insulin. A one time dose was put in for that pm dose, and when I charted my s/s novolog for 8am 08/18 it charted against the PM dose. Both doses were 5 units as charted.
[2018-08-18] MEDS: ALBUTEROL SULFATE 2.5 MG/3 ML NEBU. NEB SCH ×2 (09:00→20:00)
[2018-08-18] MEDS ORDERED: INSULIN GLARGINE 300 UNITS/3 ML INSULN.PEN. SQ SCH (09:00)
--- NOTE | 2018-08-18 10:04 | PDOC ---
PROGRESS NOTES Chief Complaint Chief Complaint Bilateral buttock abscess s/p I and D multiple pen darin drains in both butt cheeks - 08/17/18 Sepsis no organ dysfunction Diabetes type 2, question compliance-check A1c - hgba1c 8.7 in 2017 Hyponatremia 132 History I and D buttocks NArc tolerant- (10 yrs of oxycontin and oxycondone combo) History of Present Illness History of Present Illness Sugars are running high 300s to 400s, admits to skipping insulin doses at home Unknown A1c I did inspect both butt cheeks, softer, no induration, multiple Kylie drains with dried blood/dressing change On OxyContin 30 twice a day and oxycodone 30 IR every 4-6 hours when necessary for moer than 10 years now Plan okay to resume OxyContin and oxycodone dose every 4hrs prn A1c is 13 ESR 33 On IV antibiotics and cultures still pending NO fevers Resume home dose insulin regimen name Long acting 35 twice a day glyburide 5 twice a day and metformin 500 twice a day Keep sliding-scale insulin mealtimes Discussed with him Vitals Vitals Vital Signs Date Time Temp Pulse Resp B/P (MAP) Pulse Ox O2 Delivery O2 Flow Rate FiO2 08/18/18 09:10 98 Room Air 08/18/18 08:37 20 08/18/18 07:00 98.2 80 119/71 (87) 98.2 08/17/18 13:34 2.0 Physical Exam General: Alert, Oriented X3, Cooperative, No acute distress Heart: Regular rate, Normal S1, Normal S2, No murmurs Abdomen: Normal bowel sounds, Soft, No tenderness, No hepatosplenomegaly, No masses Extremities: No clubbing, No cyanosis, No edema, Normal pulses, No tenderness/swelling Skin: No rashes, No breakdown, No significant lesion Labs LABS Laboratory Tests Test 08/17/18 11:38 08/17/18 16:40 08/17/18 16:51 08/17/18 21:00 Glucose (Fingerstick) 99 mg/dL (70-99) 413 mg/dL (70-99) 311 mg/dL (70-99) Erythrocyte Sedimentation Rate 33 (0-15) Test 08/18/18 07:36 Glucose (Fingerstick) 234 mg/dL (70-99) Review of Systems Review of Systems A 14 point ROS was completed with the following noted as positive: Other systems reviewed and negative. \CONSTITUTIONAL: No fever or chills EYES: No recent changes SKIN: No rash or itching CARDIOVASCULAR: No chest pain, syncope, palpitations, or edema RESPIRATORY: No SOB or cough GASTROINTESTINAL: No nausea, vomiting or abdominal pain NEUROLOGICAL: No headaches or weakness ENDOCRINE: No cold or heat intolerance GENITOURINARY: No urgency or frequency of urination MUSCULOSKELETAL: No back pain or joint pain LYMPHATICS: No enlarged lymph nodes PSYCHIATRIC: No anxiety or depression Assessment and Plan Assessmemt and Plan Problems Medical Problems: (1) Hyperglycemia Status: Acute Comment Review of Relevant I have reviewed the following items milo (where applicable) has been applied. Labs Laboratory Tests Test 08/17/18 04:05 08/17/18 06:08 08/17/18 11:38 08/17/18 16:40 White Blood Count 6.5 x10^3/uL (4.0-11.0) Red Blood Count 4.52 x10^6/uL (4.30-5.70) Hemoglobin 12.0 g/dL (13.0-17.5) Hematocrit 36.0 % (39.0-53.0) Mean Corpuscular Volume 80 fL (79-100) Mean Corpuscular Hemoglobin 27 pg (25-35) Mean Corpuscular Hemoglobin Concent 33 g/dL (31-37) Red Cell Distribution Width 13.3 % (11.5-14.5) Platelet Count 424 x10^3/uL (140-400) Neutrophils (%) (Auto) 48 % (31-73) Lymphocytes (%) (Auto) 37 % (24-48) Monocytes (%) (Auto) 8 % (0-9) Eosinophils (%) (Auto) 6 % (0-3) Basophils (%) (Auto) 1 % (0-3) Neutrophils # (Auto) 3.1 x10^3uL (1.8-7.7) Lymphocytes # (Auto) 2.4 x10^3/uL (1.0-4.8) Monocytes # (Auto) 0.5 x10^3/uL (0.0-1.1) Eosinophils # (Auto) 0.4 x10^3/uL (0.0-0.7) Basophils # (Auto) 0.1 x10^3/uL (0.0-0.2) Sodium Level 132 mmol/L (136-145) Potassium Level 3.9 mmol/L (3.5-5.1) Chloride Level 96 mmol/L (98-107) Carbon Dioxide Level 31 mmol/L (21-32) Anion Gap 5 (6-14) Blood Urea Nitrogen 5 mg/dL (8-26) Creatinine 1.1 mg/dL (0.7-1.3) Estimated GFR (Cockcroft-Gault) 83.8 BUN/Creatinine Ratio 5 (6-20) Glucose Level 356 mg/dL (70-99) Hemoglobin A1c 13.8 % (4.8-5.6) Lactic Acid Level 1.8 mmol/L (0.4-2.0) Calcium Level 8.8 mg/dL (8.5-10.1) Magnesium Level 1.6 mg/dL (1.8-2.4) Total Bilirubin 0.1 mg/dL (0.2-1.0) Aspartate Amino Transf (AST/SGOT) 11 U/L (15-37) Alanine Aminotransferase (ALT/SGPT) 13 U/L (16-63) Alkaline Phosphatase 75 U/L (46-116) Total Protein 7.4 g/dL (6.4-8.2) Albumin 2.9 g/dL (3.4-5.0) Albumin/Globulin Ratio 0.6 (1.0-1.7) Glucose (Fingerstick) 201 mg/dL (70-99) 99 mg/dL (70-99) Erythrocyte Sedimentation Rate 33 (0-15) Test 08/17/18 16:51 08/17/18 21:00 08/18/18 07:36 Glucose (Fingerstick) 413 mg/dL (70-99) 311 mg/dL (70-99) 234 mg/dL (70-99) Laboratory Tests Test 08/17/18 11:38 08/17/18 16:40 08/17/18 16:51 08/17/18 21:00 Glucose (Fingerstick) 99 mg/dL (70-99) 413 mg/dL (70-99) 311 mg/dL (70-99) Erythrocyte Sedimentation Rate 33 (0-15) Test 08/18/18 07:36 Glucose (Fingerstick) 234 mg/dL (70-99) Microbiology 08/17/18 Blood Culture - Preliminary, Resulted NO GROWTH AFTER 1 DAY Medications Current Medications Clindamycin Phosphate 50 ml @ 100 mls/hr 1X ONCE IV Last administered on 08/17/18at 04:12; Start 08/17/18 at 04:30; Stop 08/17/18 at 04:59; Status DC Sodium Chloride 1,000 ml @ 1,000 mls/hr 1X ONCE IV Last administered on 08/17/18at 04:13; Start 08/17/18 at 04:30; Stop 08/17/18 at 05:29; Status DC Ondansetron HCl (Zofran) 4 mg PRN Q8HRS PRN IV NAUSEA/VOMITING 1ST CHANCE; Start 08/17/18 at 04:00; Stop 08/17/18 at 08:43; Status DC Fentanyl Citrate (Fentanyl 2ml Vial) 50 mcg Q2HR PRN IV PAIN Last administered on 08/17/18at 04:14; Start 08/17/18 at 04:00; Stop 08/17/18 at 04:18; Status DC Insulin Human Lispro (HumaLOG) 0-5 UNITS TIDWMEALS SQ ; Start 08/17/18 at 08:00; Stop 08/17/18 at 08:43; Status DC Dextrose (Dextrose 50%-Water Syringe) 12.5 gm PRN Q15MIN PRN IV SEE COMMENTS; Start 08/17/18 at 04:00; Stop 08/17/18 at 15:11; Status DC Fentanyl Citrate (Fentanyl 2ml Vial) 50 mcg PRN Q2HRS PRN IV SEVERE PAIN 7-10 Last administered on 08/17/18at 13:04; Start 08/17/18 at 04:30; Stop 08/17/18 at 15:38; Status DC Morphine Sulfate (Morphine Sulfate) 6 mg 1X ONCE IV Last administered on 08/17/18at 04:57; Start 08/17/18 at 05:00; Stop 08/17/18 at 05:01; Status DC Ondansetron HCl (Zofran) 4 mg PRN Q6HRS PRN IV NAUSEA/VOMITING 1ST CHANCE; Start 08/17/18 at 08:45; Stop 08/17/18 at 12:53; Status DC Tramadol HCl (Ultram) 50 mg PRN Q6HRS PRN PO MILD PAIN 1-3; Start 08/17/18 at 08:45; Status UNV Insulin Human Lispro (HumaLOG) 0-9 UNITS TIDWMEALS SQ Last administered on 08/17/18at 21:00; Start 08/17/18 at 12:00 Dextrose (Dextrose 50%-Water Syringe) 12.5 gm PRN Q15MIN PRN IV SEE COMMENTS; Start 08/17/18 at 08:45 Oxycodone HCl (Roxicodone) 30 mg PRN Q6HRS PRN PO SEVERE PAIN Last administered on 08/18/18at 04:44; Start 08/17/18 at 08:45 Non-Formulary Medication (Albuterol Sulfate (Albuterol Sulfate Neb Soln)) 1 vial Q4HRS NEB ; Start 08/17/18 at 12:00; Status UNV Non-Formulary Medication (Albuterol Sulfate (Ventolin Hfa Inhaler)) 2 puff Q4HRS INH ; Start 08/17/18 at 12:00; Status UNV Clindamycin Phosphate 50 ml @ 100 mls/hr Q8HRS IV Last administered on 08/18/18at 06:38; Start 08/17/18 at 13:00 Fentanyl Citrate (Fentanyl 2ml Vial) 25 mcg PRN Q5MIN PRN IV MILD PAIN 1-3; Start 08/17/18 at 09:00; Stop 08/17/18 at 15:38; Status DC Fentanyl Citrate (Fentanyl 2ml Vial) 50 mcg PRN Q5MIN PRN IV MODERATE TO SEVERE PAIN Last administered on 08/17/18at 11:40; Start 08/17/18 at 09:00; Stop 08/17/18 at 15:38; Status DC Ringer's Solution 1,000 ml @ 30 mls/hr Q24H IV Last administered on 08/17/18at 09:33; Start 08/17/18 at 08:48; Stop 08/17/18 at 20:47; Status DC Lidocaine HCl (Xylocaine-Mpf 1% 2ml Vial) 2 ml PRN 1X PRN ID PRIOR TO IV START; Start 08/17/18 at 09:00; Stop 08/17/18 at 20:00; Status DC Prochlorperazine Edisylate (Compazine) 5 mg PACU PRN PRN IV NAUSEA, MRX1; Start 08/17/18 at 09:00; Stop 08/17/18 at 20:00; Status DC Albuterol Sulfate (Ventolin Neb Soln) 2.5 mg Q4HRS NEB Last administered on 08/17/18at 19:33; Start 08/17/18 at 12:00; Stop 08/17/18 at 21:28; Status DC Sevoflurane (Ultane) 30 ml STK-MED ONCE IH ; Start 08/17/18 at 10:17; Stop 08/17/18 at 10:18; Status DC Midazolam HCl (Versed) 2 mg STK-MED ONCE .ROUTE ; Start 08/17/18 at 10:17; Stop 08/17/18 at 10:18; Status DC Fentanyl Citrate (Fentanyl 2ml Vial) 100 mcg STK-MED ONCE .ROUTE ; Start 08/17/18 at 10:18; Stop 08/17/18 at 15:38; Status DC Succinylcholine Chloride (Anectine) 200 mg STK-MED ONCE .ROUTE ; Start 08/17/18 at 10:18; Stop 08/17/18 at 10:19; Status DC Dexamethasone Sodium Phosphate (Decadron) 4 mg STK-MED ONCE .ROUTE ; Start 08/17/18 at 10:18; Stop 08/17/18 at 10:19; Status DC Ondansetron HCl (Zofran) 4 mg STK-MED ONCE .ROUTE ; Start 08/17/18 at 10:18; Stop 08/17/18 at 10:19; Status DC Propofol 20 ml @ As Directed STK-MED ONCE IV ; Start 08/17/18 at 10:18; Stop 08/17/18 at 10:19; Status DC Lidocaine HCl (Lidocaine Pf 2% Vial) 5 ml STK-MED ONCE .ROUTE ; Start 08/17/18 at 10:18; Stop 08/17/18 at 10:19; Status DC Cefazolin Sodium 100 ml @ As Directed STK-MED ONCE IV ; Start 08/17/18 at 10:26; Stop 08/17/18 at 10:27; Status DC Bupivacaine HCl/ Epinephrine Bitart (Sensorcain-Mpf Epi 0.5%-1:[id number]) 30 ml STK-MED ONCE .ROUTE Last administered on 08/17/18at 10:50; Start 08/17/18 at 09:46; Stop 08/17/18 at 10:46; Status DC Insulin Glargine (Lantus) 12 units QHS SQ ; Start 08/17/18 at 21:00; Stop 08/17/18 at 21:00; Status DC Glyburide (Diabeta) 1.25 mg BIDWMEALS PO ; Start 08/17/18 at 17:00; Stop 08/17/18 at 17:03; Status DC Enoxaparin Sodium (Lovenox 40mg Syringe) 40 mg Q24H SQ Last administered on 08/17/18at 21:04; Start 08/17/18 at 21:00 Sodium Chloride (Normal Saline Flush) 3 ml QSHIFT PRN IV AFTER MEDS AND BLOOD DRAWS; Start 08/17/18 at 11:45 Naloxone HCl (Narcan) 0.4 mg PRN Q2MIN PRN IV SEE INSTRUCTIONS; Start 08/17/18 at 11:45 Sodium Chloride 1,000 ml @ 25 mls/hr Q24H IV ; Start 08/17/18 at 11:42; Stop 08/17/18 at 12:08; Status DC Senna/Docusate Sodium (Senna Plus) 1 tab BID PO Last administered on 08/17/18at 21:03; Start 08/17/18 at 11:00 Ondansetron HCl (Zofran) 4 mg PRN Q6HRS PRN IV NAUESA, 1ST CHOICE; Start 08/17/18 at 11:45 Cefazolin Sodium/ Dextrose 50 ml @ 100 mls/hr 1X ONCE IV Last administered on 08/17/18at 10:40; Start 08/17/18 at 10:30; Stop 08/17/18 at 11:54; Status DC Cefazolin Sodium (Ancef) 2 gm 1X PREOP PRN IVP PRIOR TO SURGERY; Start 08/17/18 at 12:00 Oxycodone HCl (OxyCONTIN) 30 mg Q12HR PO Last administered on 08/18/18at 08:37; Start 08/17/18 at 21:00 Insulin Glargine (Lantus) 20 units QHS SQ Last administered on 08/17/18at 21:00; Start 08/17/18 at 21:00; Stop 08/18/18 at 07:29; Status DC Insulin Human Lispro (HumaLOG) 15 units TIDWMEALS SQ Last administered on 08/18/18at 08:44; Start 08/17/18 at 17:00 Insulin Human Lispro (HumaLOG) 20 units ONCE ONCE SQ Last administered on 08/17/18at 17:45; Start 08/17/18 at 17:00; Stop 08/17/18 at 17:04; Status DC Metformin HCl (Glucophage) 500 mg BIDWMEALS PO Last administered on 08/18/18at 08:32; Start 08/17/18 at 17:00 Albuterol Sulfate (Ventolin Neb Soln) 2.5 mg RTBID NEB Last administered on 08/18/18at 09:00; Start 08/18/18 at 09:00 Insulin Human Lispro (HumaLOG) 5 units 1X ONCE SQ Last administered on 08/18/18at 08:47; Start 08/17/18 at 21:00; Stop 08/18/18 at 06:49; Status DC Insulin Glargine (Lantus) 20 units BID SQ Last administered on 08/18/18at 08:43; Start 08/18/18 at 09:00 Active Scripts Active Cephalexin 500 Mg Capsule 1 Cap PO QID Albuterol Sulfate Neb Soln (Albuterol Sulfate) 1.25 Mg/3 Ml Vial.neb 1 Vial NEB Q4HRS Ventolin Hfa Inhaler (Albuterol Sulfate) 18 Gm Hfa.aer.ad 2 Puff INH Q4HRS Zithromax (Azithromycin) 250 Mg Tablet 1 Pkg PO UD Reported Glyburide 5 Mg Tablet 1 Tab PO BID Lantus Solostar (Insulin Glargine,Hum.rec.anlog) 100 Unit/1 Ml Insuln.pen 30 Unit SQ QHS Metformin Hcl 500 Mg Tablet 500 Mg PO BIDWMEALS Oxycodone HCl 30 Mg Tablet 30 Mg PO PRN Q6HRS PRN Oxycontin (Oxycodone HCl) 30 Mg Tab.er.12h 1 Tab PO BID Vitals/I & O Vital Sign - Last 24 Hours 08/17/18 08/17/18 08/17/18 08/17/18 10:19 11:18 11:33 11:40 Temp 97.7 97.7 Pulse 98 97 Resp 12 20 20 12 B/P (MAP) 155/77 140/84 Pulse Ox 96 94 94 94 O2 Delivery Room Air Room Air Room Air Room Air 08/17/18 08/17/18 08/17/18 08/17/18 11:48 12:03 12:20 12:30 Temp 98.2 97.7 98.2 97.7 Pulse 78 78 87 90 Resp 20 20 18 18 B/P (MAP) 146/95 156/87 141/91 (108) 107/57 (74) Pulse Ox 92 100 96 88 O2 Delivery Room Air Room Air Room Air Room Air 08/17/18 08/17/18 08/17/18 08/17/18 12:45 13:00 13:15 13:15 Pulse 99 99 103 Resp 18 18 18 B/P (MAP) 116/74 (88) 121/78 (92) 124/76 (92) Pulse Ox 95 96 100 95 O2 Delivery Room Air Room Air Room Air Room Air 08/17/18 08/17/18 08/17/18 08/17/18 13:30 13:34 14:00 15:00 Temp 99.2 99.2 Pulse 110 113 107 Resp 18 22 18 18 B/P (MAP) 121/68 (85) 131/62 (85) 124/86 (99) Pulse Ox 94 98 O2 Delivery Room Air Nasal Cannula Room Air Room Air O2 Flow Rate 2.0 08/17/18 08/17/18 08/17/18 08/17/18 15:52 16:00 16:52 19:20 Temp 99.2 98.0 99.2 98.0 Pulse 100 96 Resp 20 18 20 20 B/P (MAP) 133/77 (95) 124/73 (90) Pulse Ox 97 96 O2 Delivery Room Air Room Air Room Air Room Air 08/17/18 08/17/18 08/17/18 08/18/18 19:35 20:00 23:32 03:38 Temp 98.3 97.5 98.3 97.5 Pulse 88 81 Resp 20 20 B/P (MAP) 102/60 (74) 133/81 (98) Pulse Ox 98 98 97 O2 Delivery Room Air Room Air Room Air Room Air 08/18/18 08/18/18 08/18/18 07:00 08:37 09:10 Temp 98.2 98.2 Pulse 80 Resp 20 20 B/P (MAP) 119/71 (87) Pulse Ox 97 98 O2 Delivery Room Air Room Air Room Air Intake and Output 08/17/18 08/17/18 08/18/18 14:59 22:59 06:59 Intake Total 1070 ml 440 ml Output Total 300 ml 700 ml 200 ml Balance 770 ml -700 ml 240 ml NIC HERNANDEZ MD Aug 18, 2018 10:04
[2018-08-18] MEDS ORDERED: KETOROLAC 15 MG/ML VIAL. IV PRN (10:15)
--- NOTE | 2018-08-18 10:51 | PDOC ---
SURGICAL PROGRESS NOTE Subjective Pt reports soreness, but improved over preop Vital Signs Vital Signs Date Time Temp Pulse Resp B/P (MAP) Pulse Ox O2 Delivery O2 Flow Rate FiO2 08/18/18 09:10 98 Room Air 08/18/18 08:37 20 08/18/18 07:00 98.2 80 119/71 (87) 98.2 08/17/18 13:34 2.0 I&O Intake and Output 08/18/18 07:00 Intake Total 1510 ml Output Total 1200 ml Balance 310 ml Intake Oral 560 ml IV Total 950 ml Output Urine Total 1200 ml General: Alert, Oriented X3, Cooperative, mild distress Skin: Other (dressing intact) Labs Laboratory Tests Test 08/17/18 04:05 08/17/18 06:08 08/17/18 11:38 08/17/18 16:40 White Blood Count 6.5 x10^3/uL (4.0-11.0) Red Blood Count 4.52 x10^6/uL (4.30-5.70) Hemoglobin 12.0 g/dL (13.0-17.5) Hematocrit 36.0 % (39.0-53.0) Mean Corpuscular Volume 80 fL (79-100) Mean Corpuscular Hemoglobin 27 pg (25-35) Mean Corpuscular Hemoglobin Concent 33 g/dL (31-37) Red Cell Distribution Width 13.3 % (11.5-14.5) Platelet Count 424 x10^3/uL (140-400) Neutrophils (%) (Auto) 48 % (31-73) Lymphocytes (%) (Auto) 37 % (24-48) Monocytes (%) (Auto) 8 % (0-9) Eosinophils (%) (Auto) 6 % (0-3) Basophils (%) (Auto) 1 % (0-3) Neutrophils # (Auto) 3.1 x10^3uL (1.8-7.7) Lymphocytes # (Auto) 2.4 x10^3/uL (1.0-4.8) Monocytes # (Auto) 0.5 x10^3/uL (0.0-1.1) Eosinophils # (Auto) 0.4 x10^3/uL (0.0-0.7) Basophils # (Auto) 0.1 x10^3/uL (0.0-0.2) Sodium Level 132 mmol/L (136-145) Potassium Level 3.9 mmol/L (3.5-5.1) Chloride Level 96 mmol/L (98-107) Carbon Dioxide Level 31 mmol/L (21-32) Anion Gap 5 (6-14) Blood Urea Nitrogen 5 mg/dL (8-26) Creatinine 1.1 mg/dL (0.7-1.3) Estimated GFR (Cockcroft-Gault) 83.8 BUN/Creatinine Ratio 5 (6-20) Glucose Level 356 mg/dL (70-99) Hemoglobin A1c 13.8 % (4.8-5.6) Lactic Acid Level 1.8 mmol/L (0.4-2.0) Calcium Level 8.8 mg/dL (8.5-10.1) Magnesium Level 1.6 mg/dL (1.8-2.4) Total Bilirubin 0.1 mg/dL (0.2-1.0) Aspartate Amino Transf (AST/SGOT) 11 U/L (15-37) Alanine Aminotransferase (ALT/SGPT) 13 U/L (16-63) Alkaline Phosphatase 75 U/L (46-116) Total Protein 7.4 g/dL (6.4-8.2) Albumin 2.9 g/dL (3.4-5.0) Albumin/Globulin Ratio 0.6 (1.0-1.7) Glucose (Fingerstick) 201 mg/dL (70-99) 99 mg/dL (70-99) Erythrocyte Sedimentation Rate 33 (0-15) Test 08/17/18 16:51 08/17/18 21:00 08/18/18 07:36 Glucose (Fingerstick) 413 mg/dL (70-99) 311 mg/dL (70-99) 234 mg/dL (70-99) Laboratory Tests Test 08/17/18 11:38 08/17/18 16:40 08/17/18 16:51 08/17/18 21:00 Glucose (Fingerstick) 99 mg/dL (70-99) 413 mg/dL (70-99) 311 mg/dL (70-99) Erythrocyte Sedimentation Rate 33 (0-15) Test 08/18/18 07:36 Glucose (Fingerstick) 234 mg/dL (70-99) Problem List Problems Medical Problems: (1) Hyperglycemia Status: Acute Assessment/Plan s/p I and D cont wound care GREGORIO BELLO MD Aug 18, 2018 10:51
[2018-08-18 11:00] VITALS: BP 131/84
[2018-08-18] MEDS: SENNOSIDES/DOCUSATE 8.6/50MG TABLET. PO SCH ×2 (11:01→21:05)
[2018-08-18] MEDS: INSULIN GLARGINE 300 UNITS/3 ML INSULN.PEN. SQ SCH ×2 (12:17→21:13)
[2018-08-18 15:00] VITALS: BP 122/68
[2018-08-18] MEDS: LACTOBACILLUS RHAMNOSUS GG 1 CAPSULE. PO SCH ×2 (16:56→21:05)
[2018-08-18] MEDS: glyBURIDE 5 MG TABLET PO SCH (16:56)
[2018-08-18 19:30] VITALS: BP 124/69
--- NOTE | 2018-08-18 21:14 | NUR ---
NURSING NOTE ONLY 20 UNITS OF LANTUS INSULIN GIVEN FS WAS 110. DIFFICULT TO MANAGE PATIENTS GLUCOSE PT EATS LITTLE ALL THE TIME, FLUCTUATING BLOOD SUGAR.
[2018-08-18 23:33] VITALS: BP 127/75
[2018-08-19 03:25] VITALS: BP 155/82
[2018-08-19] MEDS: CLINDAMYCIN 600MG PREMIX 50 ML IV SCH ×2 (06:22→13:05)
[2018-08-19 07:00] VITALS: BP 127/79
[2018-08-19] MEDS: ALBUTEROL SULFATE 2.5 MG/3 ML NEBU. NEB SCH (07:24)
[2018-08-19] MEDS: INSULIN LISPRO 300 UNITS/3 ML INSULN.PEN. SQ SCH ×2 (07:55→12:00)
[2018-08-19] MEDS: metFORMIN 500 MG TABLET PO SCH (08:30)
[2018-08-19] MEDS: oxyCODONE ER 15 MG TAB.ER.12H PO SCH (08:30)
[2018-08-19] MEDS: glyBURIDE 5 MG TABLET PO SCH (08:30)
[2018-08-19] MEDS: LACTOBACILLUS RHAMNOSUS GG 1 CAPSULE. PO SCH (08:30)
[2018-08-19] MEDS: SENNOSIDES/DOCUSATE 8.6/50MG TABLET. PO SCH (08:30)
[2018-08-19] MEDS: INSULIN GLARGINE 300 UNITS/3 ML INSULN.PEN. SQ SCH (09:00)
--- NOTE | 2018-08-19 09:16 | NUR ---
Assumed care from NENA Campos
--- NOTE | 2018-08-19 09:53 | PDOC ---
SURGICAL PROGRESS NOTE Subjective tolerating diet pain improving Vital Signs Vital Signs Date Time Temp Pulse Resp B/P (MAP) Pulse Ox O2 Delivery O2 Flow Rate FiO2 08/19/18 08:30 16 Room Air 08/19/18 07:22 98 08/19/18 07:00 98.1 82 127/79 (95) 98.0 98.1 I&O Intake and Output 08/19/18 06:59 Intake Total 740 ml Output Total 700 ml Balance 40 ml Intake Oral 740 ml Output Urine Total 700 ml General: Alert, Oriented X3, Cooperative, No acute distress Skin: Other (drains in place) Labs Laboratory Tests Test 08/17/18 11:38 08/17/18 16:40 08/17/18 16:51 08/17/18 21:00 Glucose (Fingerstick) 99 mg/dL (70-99) 413 mg/dL (70-99) 311 mg/dL (70-99) Erythrocyte Sedimentation Rate 33 (0-15) Test 08/18/18 07:36 08/18/18 11:26 08/18/18 16:41 08/18/18 21:02 Glucose (Fingerstick) 234 mg/dL (70-99) 280 mg/dL (70-99) 156 mg/dL (70-99) 110 mg/dL (70-99) Test 08/19/18 07:41 Glucose (Fingerstick) 79 mg/dL (70-99) Laboratory Tests Test 08/18/18 11:26 08/18/18 16:41 08/18/18 21:02 08/19/18 07:41 Glucose (Fingerstick) 280 mg/dL (70-99) 156 mg/dL (70-99) 110 mg/dL (70-99) 79 mg/dL (70-99) Problem List Problems Medical Problems: (1) Hyperglycemia Status: Acute Assessment/Plan home with drains FU in clinic with Dr Garcia Sunday KONRAD BALLESTEROS [employer] SCI[employer] Aug 19, 2018 09:53
[2018-08-19] MEDS ORDERED: MAGNESIUM SULFATE 2GM 50 ML IV ONE (10:30)
[2018-08-19] MEDS ORDERED: OXYC30TA64 PO (10:49)
[2018-08-19] MEDS ORDERED: LACT1CAP19 PO (10:49)
[2018-08-19] MEDS ORDERED: INSU100I13 SQ (10:49)
[2018-08-19] MEDS ORDERED: OXYC30TA2 PO (10:49)
[2018-08-19] MEDS ORDERED: CLIN300C8 PO (10:50)
[2018-08-19 11:00] VITALS: BP 133/77
[2018-08-19 15:00] VITALS: BP 116/72
--- NOTE | 2018-08-19 15:15 | NUR ---
Discharged to home ambulatory accompanied by spouse, dressing changed to bilateral buttocks prior to dismissal, miles drains intact, provided with dressing supplies for home use, general surgery booklet given for reference
--- NOTE | 2018-08-19 16:25 | PDOC3 ---
Discharge Summary Visit Information Date of Admission: Aug 17, 2018 Date of Discharge: Aug 19, 2018 Final Diagnosis Bilateral buttock abscess s/p I and D multiple pen ca drains in both butt cheeks - 08/17/18 Sepsis no organ dysfunction Diabetes type 2, question compliance-check A1c - hgba1c 8.7 in 2017 Hyponatremia 132 History I and D buttocks NArc tolerant- (10 yrs of oxycontin and oxycondone combo) Sugars are running high 300s to 400s, admits to skipping insulin doses at home Unknown A1c I did inspect both butt cheeks, softer, no induration, multiple Brice drains with dried blood/dressing change On OxyContin 30 twice a day and oxycodone 30 IR every 4-6 hours when necessary for moer than 10 years now Plan okay to resume OxyContin and oxycodone dose every 4hrs prn A1c is 13 ESR 33 On IV antibiotics and cultures still pending NO fevers Resume home dose insulin regimen name Long acting 35 twice a day glyburide 5 twice a day and metformin 500 twice a day Keep sliding-scale insulin mealtimes Discussed with him Problems Medical Problems: (1) Hyperglycemia Status: Acute Brief Hospital Course Allergies Allergies Coded Allergies Type Severity Reaction Last Updated Verified Iodinated Contrast- Oral and IV Dye Allergy Severe Anaphylaxis 01/15/18 Yes fentanyl Allergy Severe Swelling 08/17/18 Yes iodine Allergy Severe 01/15/18 Yes acetaminophen Allergy Intermediate Hives 08/17/18 Yes codeine Allergy Intermediate Hives 08/17/18 Yes hydrocodone Allergy Intermediate Rash 01/15/18 No sodium hypochlorite solution Allergy Intermediate 05/28/14 Yes tramadol Allergy Intermediate 01/15/18 Yes Vital Signs Vital Signs Date Time Temp Pulse Resp B/P (MAP) Pulse Ox O2 Delivery O2 Flow Rate FiO2 08/19/18 15:00 98.4 101 18 116/72 (87) 100 Room Air 99.0 98.4 Lab Results Laboratory Tests Test 08/17/18 16:40 08/17/18 16:51 08/17/18 21:00 08/18/18 07:36 Erythrocyte Sedimentation Rate 33 (0-15) Glucose (Fingerstick) 413 mg/dL (70-99) 311 mg/dL (70-99) 234 mg/dL (70-99) Test 08/18/18 11:26 08/18/18 16:41 08/18/18 21:02 08/19/18 07:41 Glucose (Fingerstick) 280 mg/dL (70-99) 156 mg/dL (70-99) 110 mg/dL (70-99) 79 mg/dL (70-99) Test 08/19/18 10:23 Glucose (Fingerstick) 241 mg/dL (70-99) Laboratory Tests Test 08/18/18 16:41 08/18/18 21:02 08/19/18 07:41 08/19/18 10:23 Glucose (Fingerstick) 156 mg/dL (70-99) 110 mg/dL (70-99) 79 mg/dL (70-99) 241 mg/dL (70-99) Brief Hospital Course Mr. Vu is a 57 old male, admit with acute pain, rectal pain, buttock abcess, gen surg drained, pain much better, he was able to walk, wanted to DC Discharge Information Condition at Discharge: Improved Follow Up: Weeks Disposition/Orders: D/C to Home Scheduled Albuterol Sulfate (Ventolin Hfa Inhaler) 18 Gm Hfa.aer.ad, 2 PUFF INH Q4HRS for FOR ASTHMA, #1 Ref 0 Prescribed by: Ca Sanchez APRN on 08/20/172199 Last Action: Converted on 08/17/18843 by NIC HERNANDEZ Albuterol Sulfate (Albuterol Sulfate Neb Soln) 1.25 Mg/3 Ml Vial.neb, 1 VIAL NEB Q4HRS, #75 Prescribed by: Ca Sanchez APRN on 08/20/172199 Last Action: Converted on 08/17/18843 by NIC HERNANDEZ Clindamycin Hcl (Clindamycin Hcl) 300 Mg Capsule, 2 CAP PO TID for infection for 7 Days, #42 Prescribed by: IGNACIO WILKES on 08/19/18 1050 Glyburide (Glyburide) 5 Mg Tablet, 1 TAB PO BID for antidiabetic, #60 Ref 5 (Reported) Entered as Reported by: Sarita Brandon on 08/17/181522 Last Taken: 5 mg PO BID on Unknown Date & Time Last Action: Reviewed on 08/17/181523 by Sarita Brandon Insulin Glargine,Hum.rec.anlog (Lantus Solostar) 100 Unit/1 Ml Insuln.pen, 50 UNIT SQ QHS for antidiabetic for 30 Days, #15 Ref 3 Prescribed by: IGNACIO WILKES on 08/19/18 1049 Lactobacillus Rhamnosus Gg (Culturelle) 1 Each Cap.sprink, 1 CAP PO BID for gut health while on abx, #30 Prescribed by: IGNACIO WILKES on 08/19/18 1049 Metformin Hcl (Metformin Hcl) 500 Mg Tablet, 500 MG PO BIDWMEALS for ANTI- DIABETIC, Ref 0 (Reported) Entered as Reported by: Sarita Brandon on 08/17/181522 Last Taken: 500 mg PO BID c meal on Unknown Date & Time Last Action: Reviewed on 08/17/181523 by Sarita Brandon Oxycodone Hcl (Oxycontin) 30 Mg Tab.er.12h, 1 TAB PO BID for narcotic dependence, #10 Prescribed by: IGNACIO WILKES on 08/19/18 1049 Scheduled PRN Oxycodone HCl (Oxycodone HCl) 30 Mg Tablet, 30 MG PO PRN Q6HRS PRN for acute pain from surgery, #30 Prescribed by: IGNACIO WILKES on 08/19/18 1049 Discontinued Medications Azithromycin (Zithromax) 250 Mg Tablet, 1 PKG PO UD, #1 Prescribed by: Ca Sanchez APRN on 08/20/170 Last Action: HELD on 08/17/181536 by Sarita Brandon Cephalexin (Cephalexin) 500 Mg Capsule, 1 CAP PO QID, #40 Prescribed by: AWA PHILLIP MD on 07/01/18904 Last Action: HELD on 08/17/181536 by Sarita Brandon Patient Instructions Patient Instructions > 30 min face to face I called [facility], 2 pharmacies that have filled narcs and they confirmed his story on pain meds [facility] reviewed, he follows pain control with Dr. De Guzman. reivewed with RN, time 40 min I filled 5 days of meds as he missed his f/u for refill being here. IGNACIO WILKES MD Aug 19, 2018 16:25
[2018-08-19] MEDS ORDERED: INSULIN GLARGINE 300 UNITS/3 ML INSULN.PEN. SQ SCH (21:00)
--- NOTE | 2018-08-21 15:08 | PATHOLOGY ---
[facility] Accession Number: [id number] . 01 Material submitted: . buttock - LEFT BUTTOCK ABSCESS. Modifiers: left . 01 Clinical history: . Abscess . 02 Diagnosis: Skin, left buttock, debridement: - Subcutaneous tissue with acute abscess. - Overlying mildly hyperplastic squamous epithelium. (SKM:silva; 08/21/2018) QMS/08/21/2018 . 02 Electronically signed: . Kaleb Mahoney MD, Pathologist NPI- [id number] . 01 Gross description: . The specimen is received in formalin, labeled "Rasta Vu, left buttock abscess". Received is an ellipse of dusky osorio-brown skin measuring 2.0 x 1.3 x 0.7 cm in greatest dimensions. The surgical margin is inked. The specimen is serially sectioned and entirely submitted in cassettes A1 and A2. (CAA; 08/20/2018) QAC/QAC . 02 Pathologist provided ICD-10: L02.31 . 02 CPT . 716959 Specimen Comment: A courtesy copy of this report has been sent to Specimen Comment: [phone], , , . Specimen Comment: Report sent to ,DR ROMAN,DR WILKES / DR LATIF Performed at: 01 [facility] [address] [facility] [address], [place] [id number] MD Stanford Jones MD Phone: [phone] Performed at: 02 [facility] [address] [place], [place] [id number] MD Bruce Schuler MD Phone: [phone]
== END 2018-08-19 15:12 | disposition home or self-care (01) | DRG 872 ==
LOC: ER 03:25 → 4 NORTH 04:41
PROVIDERS: ADMIT Internal Medicine; ATTEND Internal Medicine
PROC: 0Y910ZZ Drainage of Left Buttock, Open Approach (ICD-10-PCS; 2018-08-17)
PROC: 0Y900ZZ Drainage of Right Buttock, Open Approach (ICD-10-PCS; 2018-08-17)
PROC: 0HB8XZZ Excision of Buttock Skin, External Approach (ICD-10-PCS; principal; 2018-08-17 10:00)
DX: A41.9 Sepsis, unspecified organism (principal); L02.31 Cutaneous abscess of buttock; E87.1 Hypo-osmolality and hyponatremia; E11.42 Type 2 diabetes mellitus with diabetic polyneuropathy; G25.81 Restless legs syndrome; E11.65 Type 2 diabetes mellitus with hyperglycemia; Z90.49 Acquired absence of other specified parts of digestive tract; Z86.11 Personal history of tuberculosis; Z88.8 Allergy status to other drugs, medicaments and biological substances; Z91.041 Radiographic dye allergy status; Z79.4 Long term (current) use of insulin; Z82.49 Family history of ischemic heart disease and other diseases of the circulatory system
CPT/HCPCS: 36415; 80053; 82962; 83036; 83605; 83735; 85025; 85651; 87040; 87071; 87075; 88304; 94640; 94760; 96365; 96375; A7015; J0330; J0690; J0696; J1100; J1650; J1815; J2001; J2250; J2270; J2405; J2704; J3010; J3475; J3490; J7030; J7120; J7613; 99285-25; A4461